=== PATIENT | female | born 1960 | race Caucasian/White ===

== ENCOUNTER 2017-03-01 17:05 | Emergency (ER) | payer MEDICAID ==
[~2017-03-01 17:05] MED LIST: COGENTIN DPS2 MG PO; KLONOPIN DPS1 MG PO; LASIX DPS20 MG PO; LEXAPRO DPS20 MG PO; METOPROLOL TART25 MG PO; MINIPRESS DPS2 MG PO; MONTELUKAST SOD10 MG PO; NEURONTIN DPS300 MG PO; POTASSIUM CHLO20 ME2 PO; PROVENTIL HFA6.7 GM IH; SYMBICORT160 MCG/6 IH; VALIUM-DPS10 MG PO
--- NOTE | 2017-03-08 21:28 | ER ---
ADMIT: 03/01/2017 RM/LOC: ER [facility] MR#: [id number] [facility] [address] [place], [place] [id number] MACKRADHA MONTOYA [address] [place] [address] Emergency Room Report SEX: F AGE: 56 : 1960 DATE: 03/01/2017 CHIEF COMPLAINT: Right ear ache. HISTORY OF PRESENT ILLNESS: This is a pleasant 56-year-old female, who presents to the ER for evaluation of her right ear. The patient is Brazilian-speaking only, so the [employer] was used for obtaining the history. The patient states she has had earache for the better half of today. The patient states the pain is very severe and throbbing in the right ear. She admits to fever and vomiting. She states she has been using ibuprofen and Tylenol for pain. She tells me she had a knee surgery about a month ago to repair her meniscus and since then, she has been having a lot of nausea, vomiting, and not feeling well. She feels like this is especially true when she walks into her kitchen. Her son thinks this could be secondary to some drugs being used in the apartment above her. COURSE IN THE EMERGENCY ROOM: Patient was seen and examined. Right tympanic membrane was found to be erythematous and bulging with purulent fluid behind the TM. No evidence of any perforation. No mastoid erythema or tenderness. The patient is mildly anxious and complains of severe pain. She was given 15 mg of Toradol IM as well as 1 g of Rocephin IM. We also gave her a Zofran 4 mg ODT. She is observed for 30 minutes. IMPRESSION: 1. Acute otitis media of the right ear, suppurative. 2. Nausea. DISPOSITION: The patient was given a script for amoxicillin 500 mg p.o. b.i.d. x7 days to start tomorrow morning on 03/02/2017. She was also given a script for Zofran 4 mg ODT one tab under the tongue every 8 hours as needed for nausea. She is to continue her home medications as prescribed. To use Tylenol or ibuprofen for pain. She has an appointment scheduled already with her primary care provider on . She is to keep this appointment to discuss her concerns about the nausea she has been experiencing for the past month. She is to return if she has any worsening signs or symptoms or phone her primary care provider. She was discharged in stable condition. ALLYSON Otero / Nakul Santo MD / wil JOB #: [id number] CC: Nakul Santo MD, Attending Physician Jaye Marroquin APRN-BRAIN WAVE TECHNICIAN, Family Physician
== END 2017-03-01 18:35 | disposition home or self-care (01) ==
LOC: ER 17:05
DX: H66.41 Suppurative otitis media, unspecified, right ear (principal); R11.0 Nausea; F32.9 Major depressive disorder, single episode, unspecified; J45.909 Unspecified asthma, uncomplicated; F17.210 Nicotine dependence, cigarettes, uncomplicated; Z79.899 Other long term (current) drug therapy